=== PATIENT | male | born 1965 | race Hispanic/Latino ===

== ENCOUNTER 2017-02-01 07:50 | Outpatient (CLI) | payer MEDICARE ==
[2017-02-01 08:18] LABS: Chloride 102.4 mmol/L (98-107); Potassium 4.8 mmol/L (3.6-5.0)
== END 2017-02-01 07:51 | disposition home or self-care (01) ==
LOC: LAB 07:50
PROVIDERS: ATTEND Psychiatry & Neurology Neurology
DX: N19 Unspecified kidney failure (principal)
CPT/HCPCS: 36415; 80051; 82565; 84520

== ENCOUNTER 2017-06-20 07:53 | Outpatient (CLI) | payer MEDICARE ==
[2017-06-20 08:14] LABS: Basophils # (Auto) 0.1 K/mm3 (0.0-0.1); Basophils % (Auto) 1.2 % (0.0-1.8); Eosinophils # (Auto) 0.2 K/mm3 (0.0-0.4); Eosinophils % (Auto) 4.9 % (0.0-4.3); Hematocrit 39.4 % (35.5-45.6); Hemoglobin 12.7 gm/dl (11.8-15.2); Lymphocytes # (Auto) 1.6 K/mm3 (1.2-5.4); Lymphocytes % (Auto) 34.3 % (13.4-35.0); Mean Corpuscular HGB Conc 32 % (32-34); Mean Corpuscular Hemoglobin 32 pg (28-32); Mean Corpuscular Volume 99 fl (84-94); Monocytes # (Auto) 0.4 K/mm3 (0.0-0.8); Monocytes % (Auto) 7.6 % (0.0-7.3); Platelet Count 153 K/mm3 (140-440); Red Cell Distribution Width 13.7 % (13.2-15.2)
== END 2017-06-20 07:54 | disposition home or self-care (01) ==
LOC: LAB 07:53
PROVIDERS: ATTEND Psychiatry & Neurology Neurology
DX: N18.9 Chronic kidney disease, unspecified (principal); C90.01 Multiple myeloma in remission; R79.89 Other specified abnormal findings of blood chemistry; F17.200 Nicotine dependence, unspecified, uncomplicated
CPT/HCPCS: 36415; 80051; 82306; 82565; 82947; 85025

== ENCOUNTER 2017-07-19 08:02 | Outpatient (CLI) | payer MEDICARE ==
[2017-07-19 08:18] LABS: Basophils % (Auto) 1.1 % (0.0-1.8); Eosinophils # (Auto) 0.2 K/mm3 (0.0-0.4); Eosinophils % (Auto) 4.9 % (0.0-4.3); Hematocrit 37.5 % (35.5-45.6); Hemoglobin 12.8 gm/dl (11.8-15.2); Lymphocytes # (Auto) 1.4 K/mm3 (1.2-5.4); Lymphocytes % (Auto) 35.6 % (13.4-35.0); Mean Corpuscular HGB Conc 34 % (32-34); Mean Corpuscular Hemoglobin 33 pg (28-32); Mean Corpuscular Volume 96 fl (84-94); Monocytes # (Auto) 0.2 K/mm3 (0.0-0.8); Monocytes % (Auto) 6.1 % (0.0-7.3); Platelet Count 144 K/mm3 (140-440); Red Blood Count 3.92 M/mm3 (3.65-5.03); Red Cell Distribution Width 13.1 % (13.2-15.2)
== END 2017-07-19 08:03 | disposition home or self-care (01) ==
LOC: LAB 08:02
PROVIDERS: ATTEND Psychiatry & Neurology Neurology
DX: C80.1 Malignant (primary) neoplasm, unspecified (principal); R79.89 Other specified abnormal findings of blood chemistry; F17.200 Nicotine dependence, unspecified, uncomplicated
CPT/HCPCS: 36415; 80051; 82565; 82947; 85025

== ENCOUNTER 2017-08-09 08:59 | Outpatient (CLI) | payer MEDICARE ==
[2017-08-09 09:18] LABS: INR 0.85 (0.87-1.13)
[2017-08-09 09:22] LABS: Alanine Aminotransferase 12 units/L (7-56); Blood Urea Nitrogen 22 mg/dL (9-20)
== END 2017-08-09 09:00 | disposition home or self-care (01) ==
LOC: LAB 08:59
PROVIDERS: ATTEND Psychiatry & Neurology Neurology
DX: D50.9 Iron deficiency anemia, unspecified (principal); F17.210 Nicotine dependence, cigarettes, uncomplicated; N18.1 Chronic kidney disease, stage 1; R79.1 Abnormal coagulation profile; R53.1 Weakness; R53.81 Other malaise; Z87.442 Personal history of urinary calculi
CPT/HCPCS: 36415; 80051; 82565; 82947; 84450; 84460; 84520; 85610

== ENCOUNTER 2017-09-12 08:04 | Outpatient (CLI) | payer MEDICARE ==
[2017-09-12 08:23] LABS: Basophils # (Auto) 0.1 K/mm3 (0.0-0.1); Basophils % (Auto) 1.2 % (0.0-1.8); Eosinophils # (Auto) 0.3 K/mm3 (0.0-0.4); Hematocrit 40.6 % (35.5-45.6); Hemoglobin 13.2 gm/dl (11.8-15.2); Lymphocytes % (Auto) 35.3 % (13.4-35.0); Mean Corpuscular HGB Conc 33 % (32-34); Mean Corpuscular Hemoglobin 31 pg (28-32); Mean Corpuscular Volume 97 fl (84-94); Monocytes # (Auto) 0.4 K/mm3 (0.0-0.8); Monocytes % (Auto) 6.7 % (0.0-7.3); Platelet Count 193 K/mm3 (140-440)
[2017-09-12 08:36] LABS: Calcium 10.1 mg/dL (8.4-10.2)
== END 2017-09-12 08:05 | disposition home or self-care (01) ==
LOC: LAB 08:04
PROVIDERS: ATTEND Psychiatry & Neurology Neurology
DX: N18.9 Chronic kidney disease, unspecified (principal); F17.219 Nicotine dependence, cigarettes, with unspecified nicotine-induced disorders
CPT/HCPCS: 36415; 80051; 82310; 82565; 84520; 85025

== ENCOUNTER 2017-10-10 08:05 | Outpatient (CLI) | payer MEDICARE ==
[2017-10-10 08:23] LABS: Basophils % (Auto) 0.5 % (0.0-1.8); Eosinophils # (Auto) 0.2 K/mm3 (0.0-0.4); Eosinophils % (Auto) 2.5 % (0.0-4.3); Hematocrit 36.4 % (35.5-45.6); Lymphocytes # (Auto) 0.5 K/mm3 (1.2-5.4); Lymphocytes % (Auto) 5.6 % (13.4-35.0); Mean Corpuscular HGB Conc 33 % (32-34); Mean Corpuscular Hemoglobin 32 pg (28-32); Mean Corpuscular Volume 96 fl (84-94); Monocytes # (Auto) 0.2 K/mm3 (0.0-0.8); Monocytes % (Auto) 2.5 % (0.0-7.3); Platelet Count 140 K/mm3 (140-440); Red Cell Distribution Width 14.1 % (13.2-15.2)
[2017-10-10 08:43] LABS: Calcium 9.4 mg/dL (8.4-10.2)
== END 2017-10-10 08:06 | disposition home or self-care (01) ==
LOC: LAB 08:05
PROVIDERS: ATTEND Psychiatry & Neurology Neurology
DX: N19 Unspecified kidney failure (principal); F17.210 Nicotine dependence, cigarettes, uncomplicated
CPT/HCPCS: 36415; 80051; 82310; 82565; 85025

== ENCOUNTER 2017-11-07 07:49 | Outpatient (CLI) | payer MEDICARE ==
[2017-11-07 08:52] LABS: Chol/HDL Ratio 2.43 %
== END 2017-11-07 07:50 | disposition home or self-care (01) ==
LOC: LAB 07:49
PROVIDERS: ATTEND Psychiatry & Neurology Neurology
DX: C80.1 Malignant (primary) neoplasm, unspecified (principal); E78.5 Hyperlipidemia, unspecified
CPT/HCPCS: 36415; 80061; 82533

== ENCOUNTER 2018-02-28 08:01 | Outpatient (CLI) | payer MEDICARE | END 2018-02-28 08:02 | disposition home or self-care (01) | LOC: LAB 08:01 | PROVIDERS: ATTEND Psychiatry & Neurology Neurology | DX: N19 Unspecified kidney failure (principal); Z87.891 Personal history of nicotine dependence | CPT/HCPCS: 36415; 80051; 82533; 82565; 84520 ==

== ENCOUNTER 2018-03-27 07:43 | Outpatient (CLI) | payer MEDICARE | END 2018-03-27 07:44 | disposition home or self-care (01) | LOC: LAB 07:43 | PROVIDERS: ATTEND Psychiatry & Neurology Neurology | DX: G62.9 Polyneuropathy, unspecified (principal) | CPT/HCPCS: 36415; 82306; 83540 ==

== ENCOUNTER 2018-05-22 07:46 | Outpatient (CLI) | payer MEDICARE | END 2018-05-22 07:47 | disposition home or self-care (01) | LOC: LAB 07:46 | PROVIDERS: ATTEND Psychiatry & Neurology Neurology | DX: C80.1 Malignant (primary) neoplasm, unspecified (principal); R79.89 Other specified abnormal findings of blood chemistry | CPT/HCPCS: 36415; 80051; 82565; 82947; 83540; 84520 ==

== ENCOUNTER 2018-06-19 08:03 | Outpatient (CLI) | payer MEDICARE ==
[2018-06-19 08:58] LABS: % Iron Saturation 16.71 %; Calcium 9.6 mg/dL (8.4-10.2)
== END 2018-06-19 08:04 | disposition home or self-care (01) ==
LOC: LAB 08:03
PROVIDERS: ATTEND Psychiatry & Neurology Neurology
DX: N19 Unspecified kidney failure (principal); R79.89 Other specified abnormal findings of blood chemistry
CPT/HCPCS: 36415; 80051; 82310; 82565; 82947; 83550; 84520

== ENCOUNTER 2018-07-18 09:42 | Outpatient (CLI) | payer MEDICARE | END 2018-07-18 09:43 | disposition home or self-care (01) | LOC: LAB 09:42 | PROVIDERS: ATTEND Psychiatry & Neurology Neurology | DX: N19 Unspecified kidney failure (principal) | CPT/HCPCS: 36415; 80051; 82565; 83540; 84520 ==

== ENCOUNTER 2018-08-14 07:57 | Outpatient (CLI) | payer MEDICARE | END 2018-08-14 07:58 | disposition home or self-care (01) | LOC: LAB 07:57 | PROVIDERS: ATTEND Psychiatry & Neurology Neurology | DX: N19 Unspecified kidney failure (principal) | CPT/HCPCS: 36415; 80051; 82533; 82565; 84520 ==

== ENCOUNTER 2018-09-11 07:51 | Outpatient (CLI) | payer MEDICARE ==
[2018-09-11 08:08] LABS: Basophils # (Auto) 0.1 K/mm3 (0.0-0.1); Basophils % (Auto) 0.9 % (0.0-1.8); Eosinophils # (Auto) 0.5 K/mm3 (0.0-0.4); Eosinophils % (Auto) 7.4 % (0.0-4.3); Hematocrit 38.2 % (35.5-45.6); Hemoglobin 12.7 gm/dl (11.8-15.2); Lymphocytes # (Auto) 1.2 K/mm3 (1.2-5.4); Lymphocytes % (Auto) 19.6 % (13.4-35.0); Mean Corpuscular HGB Conc 33 % (32-34); Mean Corpuscular Hemoglobin 32 pg (28-32); Mean Corpuscular Volume 97 fl (84-94); Monocytes # (Auto) 0.3 K/mm3 (0.0-0.8); Monocytes % (Auto) 5.3 % (0.0-7.3); Platelet Count 180 K/mm3 (140-440); Red Blood Count 3.96 M/mm3 (3.65-5.03)
== END 2018-09-11 07:52 | disposition home or self-care (01) ==
LOC: LAB 07:51
PROVIDERS: ATTEND Psychiatry & Neurology Neurology
DX: N19 Unspecified kidney failure (principal)
CPT/HCPCS: 36415; 80051; 82565; 84520; 85025

== ENCOUNTER 2018-10-30 08:06 | Outpatient (CLI) | payer MEDICARE | END 2018-10-30 08:07 | disposition home or self-care (01) | LOC: LAB 08:06 | PROVIDERS: ATTEND Psychiatry & Neurology Neurology | DX: N19 Unspecified kidney failure (principal) | CPT/HCPCS: 36415; 80051; 82565; 83540; 84100; 84520 ==

== ENCOUNTER 2018-11-27 08:03 | Outpatient (CLI) | payer MEDICARE | END 2018-11-27 08:04 | disposition home or self-care (01) | LOC: LAB 08:03 | PROVIDERS: ATTEND Psychiatry & Neurology Neurology | DX: N18.3 Chronic kidney disease, stage 3 (moderate) (principal); E87.5 Hyperkalemia; D63.1 Anemia in chronic kidney disease | CPT/HCPCS: 36415; 80051; 82565; 83540; 84520 ==

== ENCOUNTER 2018-12-25 08:37 | Outpatient (CLI) | payer MEDICARE | END 2018-12-25 08:38 | disposition home or self-care (01) | LOC: LAB 08:37 | PROVIDERS: ATTEND Psychiatry & Neurology Neurology | DX: C80.1 Malignant (primary) neoplasm, unspecified (principal) | CPT/HCPCS: 36415; 80051; 82565; 82947; 84520; 85652 ==

== ENCOUNTER 2019-01-29 08:03 | Outpatient (CLI) | payer MEDICARE ==
[2019-01-29 08:29] LABS: Basophils # (Auto) 0.1 K/mm3 (0.0-0.1); Basophils % (Auto) 1.3 % (0.0-1.8); Eosinophils # (Auto) 0.3 K/mm3 (0.0-0.4); Eosinophils % (Auto) 5.5 % (0.0-4.3); Hematocrit 41.7 % (35.5-45.6); Hemoglobin 13.6 gm/dl (11.8-15.2); Lymphocytes # (Auto) 1.7 K/mm3 (1.2-5.4); Lymphocytes % (Auto) 28.8 % (13.4-35.0); Mean Corpuscular HGB Conc 33 % (32-34); Mean Corpuscular Volume 94 fl (84-94); Monocytes # (Auto) 0.4 K/mm3 (0.0-0.8); Monocytes % (Auto) 7.6 % (0.0-7.3); Platelet Count 172 K/mm3 (140-440); Red Blood Count 4.42 M/mm3 (3.65-5.03); Red Cell Distribution Width 13.4 % (13.2-15.2)
== END 2019-01-29 08:04 | disposition home or self-care (01) ==
LOC: LAB 08:03
PROVIDERS: ATTEND Psychiatry & Neurology Neurology
DX: E78.5 Hyperlipidemia, unspecified (principal); N20.0 Calculus of kidney; D63.1 Anemia in chronic kidney disease; R97.0 Elevated carcinoembryonic antigen [CEA]
CPT/HCPCS: 36415; 80051; 82378; 82565; 84520; 85025

== ENCOUNTER 2019-03-05 08:07 | Outpatient (CLI) | payer MEDICARE ==
[2019-03-05 08:47] LABS: Basophils # (Auto) 0.1 K/mm3 (0.0-0.1); Basophils % (Auto) 1.4 % (0.0-1.8); Eosinophils # (Auto) 0.3 K/mm3 (0.0-0.4); Eosinophils % (Auto) 4.6 % (0.0-4.3); Hematocrit 42.7 % (35.5-45.6); Hemoglobin 13.8 gm/dl (11.8-15.2); Lymphocytes # (Auto) 2.8 K/mm3 (1.2-5.4); Lymphocytes % (Auto) 39.3 % (13.4-35.0); Mean Corpuscular HGB Conc 32 % (32-34); Mean Corpuscular Volume 92 fl (84-94); Monocytes # (Auto) 0.6 K/mm3 (0.0-0.8); Monocytes % (Auto) 8.2 % (0.0-7.3); Platelet Count 216 K/mm3 (140-440); Red Blood Count 4.64 M/mm3 (3.65-5.03); Red Cell Distribution Width 13.2 % (13.2-15.2)
--- NOTE | 2019-03-05 11:13 | XRay Report ---
LUMBAR SPINE 3 VIEWS INDICATION / CLINICAL INFORMATION: BONE LESION. COMPARISON: None available. FINDINGS: VERTEBRAE: Osteopenia and mild levoscoliosis. Moderate mid wedge compression fractures at all levels. No fracture lines identified. DISC SPACES / FACET JOINTS:The disc spaces are preserved. Moderate multilevel facet joint arthropathy . PARASPINAL SOFT TISSUES:Calcifications in the aorta. ADDITIONAL FINDINGS: None. IMPRESSION: Age-indeterminate mid-wedge compression fractures at all levels. Levoscoliosis and modera te multilevel facet joint arthropathy. Signer Name: Gage Null MD Signed: 03/05/2019 11:09 AM Workstation Name: [id number]
--- NOTE | 2019-03-05 11:16 | XRay Report ---
THORACIC SPINE 3 VIEWS INDICATION / CLINICAL INFORMATION: BONE LESION COMPARISON: None available. FINDINGS: BONES / JOINT(S): Multilevel wedging throughout the mid/lower thoracic spine is age indeterminate. No definitive lesion. Moderate dextroconvex scoliosis. SOFT TISSUES: No significant abnormality. ADDITIONAL FINDINGS: None. Signer Name: Boyd Gutierrez MD Signed: 03/05/2019 11:11 AM Workstation Name: [id number]
--- NOTE | 2019-03-05 11:38 | XRay Report ---
Cervical spine 3 views Indication: BONE LESION Findings: There is osteopenia throughout the cervical spine limited osseous detail. No subluxation is identifie d. There is facet degenerative change most prominent in the upper cervical spine. Mild discogenic deg enerative change in the lower cervical spine. Within the limits of this study, no fracture is identified. Signer Name: Gabriel Espitia MD Signed: 03/05/2019 9:33 AM Workstation Name: [id number]
== END 2019-03-05 08:08 | disposition home or self-care (01) ==
LOC: LAB 08:07
PROVIDERS: ATTEND Psychiatry & Neurology Neurology
DX: M48.50XA Collapsed vertebra, not elsewhere classified, site unspecified, initial encounter for fracture (principal); M85.88 Other specified disorders of bone density and structure, other site; M47.812 Spondylosis without myelopathy or radiculopathy, cervical region; M41.85 Other forms of scoliosis, thoracolumbar region; M46.86 Other specified inflammatory spondylopathies, lumbar region; I70.0 Atherosclerosis of aorta; R79.89 Other specified abnormal findings of blood chemistry
CPT/HCPCS: 36415; 72040; 72070; 72100; 80051; 82565; 82947; 83540; 84520; 85025